=== PATIENT | female | born 1985 | race African-American/Black ===

== ENCOUNTER 2018-02-06 06:21 | Emergency (ER) | payer OTHER | END 2018-02-06 07:36 | disposition home or self-care (01) | LOC: FTE 06:21 | DX: S89.92XA Unspecified injury of left lower leg, initial encounter (principal); X50.3XXA Overexertion from repetitive movements, initial encounter; Y92.9 Unspecified place or not applicable | CPT/HCPCS: 73562; 99283-25 ==